=== PATIENT | female | born 1960 | race African-American/Black ===

== ENCOUNTER 2017-07-08 09:56 | Emergency (ER) | payer SELFPAY ==
[~2017-07-08] VITALS: Ht 167.6 cm; Wt 70.0 kg
[~2017-07-08 09:56] MED LIST: ATOR10TA PO; METH10TA7 PO
[2017-07-08 16:10] VITALS: BP 149/95
== END 2017-07-08 16:11 | disposition home or self-care (01) ==
LOC: ER 10:15
DX: M54.41 Lumbago with sciatica, right side (principal); E05.90 Thyrotoxicosis, unspecified without thyrotoxic crisis or storm; Z88.5 Allergy status to narcotic agent
CPT/HCPCS: 99283

== ENCOUNTER 2019-08-05 10:15 | Emergency (ER) | payer BC ==
[~2019-08-05] VITALS: Ht 167.6 cm; Wt 74.0 kg
[2019-08-05] MEDS ORDERED: KETOROLAC 30MG/ML VIAL IV STA (11:08)
[2019-08-05] MEDS ORDERED: ACETAMINOPHEN 325MG TABLET PO STA (11:08)
[2019-08-05 12:00] LABS: BASOPHILS % 0.5 % (0.0-2.0); EOSINOPHILS % 2.2 % (0.0-5.0); HEMATOCRIT. 43.3 % (36.0-48.0); HEMOGLOBIN. 13.3 g/dL (12.0-16.0); LYMPHOCYTES % 44.5 % (20.0-50.0); MEAN CORPUSCULAR HEMOGLOBIN 21.6 pg (28.0-32.0); MEAN CORPUSCULAR VOLUME 70.2 fL (81.0-99.0); MONOCYTES % 10.6 % (2.0-8.0); NEUTROPHILS % 42.2 % (40.0-76.0); PLATELET 288 x1000/uL (130-400); RED BLOOD CELL COUNT 6.17 mill/uL (4.2-5.4); RED CELL DISTRIBUTION WIDTH 17.3 % (11.6-14.6)
[2019-08-05 12:06] LABS: CHLORIDE 105 mEq/L (98-107)
[2019-08-05 12:58] VITALS: BP 147/72
== END 2019-08-05 13:05 | disposition home or self-care (01) ==
LOC: ER 10:15
DX: M79.18 Myalgia, other site (principal); B34.9 Viral infection, unspecified; I10 Essential (primary) hypertension; E03.9 Hypothyroidism, unspecified; Z87.891 Personal history of nicotine dependence; Z90.710 Acquired absence of both cervix and uterus; Z88.5 Allergy status to narcotic agent
CPT/HCPCS: 36415; 71045; 80053; 83880; 84484; 85025; 93005; 96374; 99284; J1885

== ENCOUNTER 2020-05-18 12:52 | Emergency (ER) | payer SELFPAY ==
[~2020-05-18] VITALS: Ht 167.6 cm; Wt 80.0 kg
[2020-05-18] MEDS ORDERED: ACETAMINOPHEN 325MG TABLET PO ONE (15:00)
[2020-05-18 16:05] LABS: HEMATOCRIT 42.3 % (36.0-48.0); HEMOGLOBIN 13.5 g/dL (12.0-16.0); MEAN CORPUSCULAR HEMOGLOBIN 21.6 pg (28.0-32.0); MEAN CORPUSCULAR VOLUME 67.9 fL (81.0-99.0); PLATELET 292 x1000/uL (130-400); RED BLOOD CELL COUNT 6.23 mill/uL (4.2-5.4); RED CELL DISTRIBUTION WIDTH 16.4 % (11.6-14.6)
[2020-05-18 16:07] LABS: CHLORIDE 106 mEq/L (98-107)
[2020-05-18 16:17] LABS: T4 FREE 1.31 ng/dL (0.76-1.46)
[2020-05-18 18:12] VITALS: BP 130/92
== END 2020-05-18 18:18 | disposition home or self-care (01) ==
LOC: ER 13:14
DX: J18.9 Pneumonia, unspecified organism (principal); E05.90 Thyrotoxicosis, unspecified without thyrotoxic crisis or storm; Z90.710 Acquired absence of both cervix and uterus; Z88.5 Allergy status to narcotic agent
CPT/HCPCS: 36415; 71045; 80053; 84439; 84443; 85027; 87635; 93005; 99285; C9803